=== PATIENT | male | born 1980 | race African-American/Black ===

== ENCOUNTER 2020-12-02 16:08 | Inpatient (IN) | payer SELFPAY ==
[2020-12-02 16:51] VITALS: BMI 55.5
[2020-12-02] MEDS ORDERED: Acetaminophen 325 MG TAB PO PRN (17:34)
[2020-12-02] MEDS ORDERED: HYDROcodone/Acetaminophen 5/325 mg Tablet PO PRN (17:34)
[2020-12-02] MEDS ORDERED: Ondansetron PF 4 MG/2 ML Vial IVP PRN (17:34)
[2020-12-02] MEDS ORDERED: HYDROcodone/Acetaminophen 10/325 mg Tablet PO PRN (17:34)
[2020-12-02] MEDS ORDERED: Senokot S 8.6-50 MG TAB PO PRN (17:34)
[2020-12-02] MEDS ORDERED: Melatonin 3 MG TAB PO PRN (17:43)
[2020-12-02] MEDS ORDERED: Labetalol HCl 100 MG/20 ML VIAL SLOW IVP PRN (17:52)
[2020-12-02] MEDS ORDERED: Clindamycin/D5W 600 MG in Premix Bag 1 BAG IVPB SCH (18:00)
[2020-12-02] MEDS ORDERED: Electrolyte Replacement Protocol 1 EACH FS SCH (18:15)
[2020-12-02 19:45] LABS: Anion Gap 16 mmol/L (10-20); BUN (Urea Nitrogen) 9 mg/dL (8.9-20.6); Calc. Creatinine Clearance 237 mL/min (70-130); Calcium 9.5 mg/dL (7.8-10.44); Carbon Dioxide 28 mmol/L (22-29); Chloride 101 mmol/L (98-107); Glucose 95 mg/dL (70-105); Potassium 3.7 mmol/L (3.5-5.1); Sodium 141 mmol/L (136-145)
[2020-12-02] MEDS: Nicotine 21 MG PATCH TD SCH (20:39)
[2020-12-02] MEDS: Clindamycin/D5W 600 MG in Premix Bag 1 BAG IVPB SCH (20:39)
[2020-12-02] MEDS: Nitroglycerin 2% Ointment 1 INCH/1 GM Packet TOP SCH (21:59)
[2020-12-03 02:27] LABS: INR-International Normal Ratio 1.3; Prothrombin Time 16.5 sec (12.0-14.7)
[2020-12-03 02:37] LABS: Anion Gap 13 mmol/L (10-20); BUN (Urea Nitrogen) 9 mg/dL (8.9-20.6); Calc. Creatinine Clearance 256 mL/min (70-130); Calcium 9.2 mg/dL (7.8-10.44); Carbon Dioxide 31 mmol/L (22-29); Chloride 99 mmol/L (98-107); Glucose 114 mg/dL (70-105); Potassium 3.5 mmol/L (3.5-5.1); Sodium 139 mmol/L (136-145)
[2020-12-03] MEDS ORDERED: Potassium Chloride 20 MEQ TAB PO SCH (04:30)
[2020-12-03] MEDS: Clindamycin/D5W 600 MG in Premix Bag 1 BAG IVPB SCH ×3 (05:17→21:12)
[2020-12-03] MEDS: Furosemide 40 MG/4 ML VIAL SLOW IVP SCH ×3 (05:17→21:13)
[2020-12-03 06:25] LABS: #Basophils 0.1 thou/uL (0.0-0.2); #Lymphocytes 2.2 thou/uL (1.20-3.40); #Monocytes 0.6 thou/uL (0.11-0.59); #Neutrophils 3.5 thou/uL (1.40-6.50); %Eosinophils 0.7 % (0.0-10.0); %Lymphocytes 34.5 % (21.0-51.0); %Neutrophils 54.8 % (42.0-75.0); Mean Corpuscular HGB CONC 30.2 g/dL (32.0-36.0); Mean Corpuscular Hemoglobin 26.9 pg (27.0-31.0); Mean Corpuscular Volume 89.1 fL (78.0-98.0); Mean Platelet Volume 6.6 fL (7.4-10.4); Platelet Count 392 thou/uL (130-400); RBC Distribution Width 17.9 % (11.5-14.5); Red Blood Cell (RBC) Count 4.46 mill/uL (4.70-6.10); White Blood Cell (WBC) Count 6.3 thou/uL (4.8-10.8)
[2020-12-03 06:33] LABS: Hemoglobin A1c 6.4 % (4.0-6.0)
[2020-12-03 06:50] LABS: ALT (SGPT) 10 U/L (8-55); AST (SGOT) 20 U/L (5-34); Albumin 3.6 g/dL (3.5-5.0); Alkaline Phosphatase 232 U/L (40-110); Anion Gap 13 mmol/L (10-20); BUN (Urea Nitrogen) 9 mg/dL (8.9-20.6); Bilirubin, Total 3.6 mg/dL (0.2-1.2); Calc. Creatinine Clearance 246 mL/min (70-130); Calcium 9.5 mg/dL (7.8-10.44); Carbon Dioxide 29 mmol/L (22-29); Cardiac Risk 3.4 (Less than 4.5); Chloride 101 mmol/L (98-107); Cholesterol 88 mg/dl (< 200 Desired); Globulin 3.7 g/dL (2.4-3.5); Glucose 110 mg/dL (70-105); HDL Cholesterol 26 mg/dL (>60 Neg Risk); LDL Cholesterol, Calculated 48 mg/dL; Magnesium 1.9 mg/dL (1.6-2.6); Phosphorus 4.5 mg/dL (2.3-4.7); Potassium 3.9 mmol/L (3.5-5.1); Protein, Total 7.3 g/dL (6.0-8.3); Sodium 139 mmol/L (136-145); Triglycerides 71 mg/dL (Less than 150)
[2020-12-03] MEDS ORDERED: Magnesium 2 GM/50 ML 2 GM in Premix Bag 1 BAG IVPB SCH (07:30)
[2020-12-03] MEDS: Famotidine 20 MG TAB PO SCH ×2 (08:55→21:12)
[2020-12-03] MEDS: Nitroglycerin 2% Ointment 1 INCH/1 GM Packet TOP SCH ×2 (08:56→21:14)
[2020-12-03] MEDS: Carvedilol 3.125 MG TAB PO SCH (16:21)
[2020-12-03] MEDS: Nicotine 21 MG PATCH TD SCH (16:21)
[2020-12-03 18:55] LABS: Amphetamine Not Detected (NotDetected); Barbiturates Screen Not Detected (NotDetected); Benzodiazepine Screen Not Detected (NotDetected); Cocaine Metabolite Screen Not Detected (NotDetected); Methadone Not Detected (NotDetected); Methamphetamine Not Detected (NotDetected); Opiate Screen Detected (NotDetected); Oxycodone Screen Not Detected (NotDetected); Phencyclidine (PCP) Not Detected (NotDetected); THC/Cannabinoid Screen Detected (NotDetected); Tricyclic Screen Not Detected (NotDetected)
[2020-12-04] MEDS: Furosemide 40 MG/4 ML VIAL SLOW IVP SCH ×3 (05:14→21:06)
[2020-12-04] MEDS: Clindamycin/D5W 600 MG in Premix Bag 1 BAG IVPB SCH ×3 (05:14→20:10)
[2020-12-04 05:17] LABS: Anion Gap 17 mmol/L (10-20); BUN (Urea Nitrogen) 10 mg/dL (8.9-20.6); Calc. Creatinine Clearance 246 mL/min (70-130); Calcium 9.1 mg/dL (7.8-10.44); Carbon Dioxide 26 mmol/L (22-29); Chloride 98 mmol/L (98-107); Glucose 110 mg/dL (70-105); Sodium 137 mmol/L (136-145)
[2020-12-04] MEDS: Famotidine 20 MG TAB PO SCH ×2 (09:17→20:09)
[2020-12-04] MEDS: Carvedilol 3.125 MG TAB PO SCH ×2 (09:17→16:44)
[2020-12-04] MEDS: Nitroglycerin 2% Ointment 1 INCH/1 GM Packet TOP SCH ×2 (09:17→20:57)
[2020-12-04] MEDS: Nicotine 21 MG PATCH TD SCH (16:45)
[2020-12-04] MEDS: Lisinopril 5 MG TAB PO SCH (20:09)
[2020-12-05] MEDS: Clindamycin/D5W 600 MG in Premix Bag 1 BAG IVPB SCH (05:43)
[2020-12-05] MEDS: Furosemide 40 MG/4 ML VIAL SLOW IVP SCH ×3 (05:43→20:50)
[2020-12-05 06:16] LABS: Anion Gap 15 mmol/L (10-20); BUN (Urea Nitrogen) 11 mg/dL (8.9-20.6); Calc. Creatinine Clearance 220 mL/min (70-130); Calcium 9.2 mg/dL (7.8-10.44); Carbon Dioxide 29 mmol/L (22-29); Chloride 97 mmol/L (98-107); Glucose 108 mg/dL (70-105); Potassium 3.7 mmol/L (3.5-5.1); Sodium 137 mmol/L (136-145)
[2020-12-05] MEDS ORDERED: Metolazone 5 MG TAB PO SCH (08:45)
[2020-12-05] MEDS: Famotidine 20 MG TAB PO SCH ×2 (09:17→20:50)
[2020-12-05] MEDS: Carvedilol 3.125 MG TAB PO SCH ×2 (09:17→16:32)
[2020-12-05] MEDS: Lisinopril 5 MG TAB PO SCH ×2 (09:17→20:58)
[2020-12-05] MEDS: Nitroglycerin 2% Ointment 1 INCH/1 GM Packet TOP SCH ×2 (09:18→20:50)
[2020-12-06 05:15] LABS: Anion Gap 15 mmol/L (10-20); BUN (Urea Nitrogen) 11 mg/dL (8.9-20.6); Calc. Creatinine Clearance 222 mL/min (70-130); Calcium 9.5 mg/dL (7.8-10.44); Carbon Dioxide 31 mmol/L (22-29); Chloride 95 mmol/L (98-107); Glucose 105 mg/dL (70-105); Potassium 3.6 mmol/L (3.5-5.1); Sodium 137 mmol/L (136-145)
[2020-12-06] MEDS: Furosemide 40 MG/4 ML VIAL SLOW IVP SCH ×3 (06:14→22:10)
[2020-12-06] MEDS ORDERED: Metolazone 5 MG TAB PO SCH (08:00)
[2020-12-06] MEDS ORDERED: Potassium Chloride 20 MEQ TAB PO SCH (08:00)
[2020-12-06] MEDS: Famotidine 20 MG TAB PO SCH ×2 (08:57→22:02)
[2020-12-06] MEDS: Lisinopril 5 MG TAB PO SCH ×2 (08:57→22:02)
[2020-12-06] MEDS: Carvedilol 3.125 MG TAB PO SCH ×2 (08:57→16:29)
[2020-12-06] MEDS: Nitroglycerin 2% Ointment 1 INCH/1 GM Packet TOP SCH ×2 (08:58→22:04)
[2020-12-06] MEDS ORDERED: Communication Order-Pharmacy FS SCH (17:45)
[2020-12-06] MEDS ORDERED: Aspirin 81 mg Enteric Coated Tablet PO SCH (18:15)
[2020-12-07 04:44] LABS: Anion Gap 16 mmol/L (10-20); BUN (Urea Nitrogen) 12 mg/dL (8.9-20.6); Calc. Creatinine Clearance 213 mL/min (70-130); Carbon Dioxide 32 mmol/L (22-29); Chloride 91 mmol/L (98-107); Glucose 102 mg/dL (70-105); Potassium 3.6 mmol/L (3.5-5.1); Sodium 135 mmol/L (136-145)
[2020-12-07] MEDS: Famotidine 20 MG TAB PO SCH ×2 (05:31→20:13)
[2020-12-07] MEDS: Aspirin 81 mg Enteric Coated Tablet PO SCH (05:32)
[2020-12-07] MEDS: Sodium Chloride 0.9% 1,000 ML IV SCH (05:32)
[2020-12-07] MEDS: Furosemide 40 MG/4 ML VIAL SLOW IVP SCH ×2 (06:40→16:11)
[2020-12-07] MEDS ORDERED: Heparin 10,000 UNITS/ 10 ML VIAL ONE (08:26)
[2020-12-07] MEDS ORDERED: Lidocaine 1% (PF) 30 ML VIAL ONE ×2 (08:27→09:25)
[2020-12-07] MEDS ORDERED: Midazolam HCl 2 mg/2 ml Vial ONE (09:16)
[2020-12-07] MEDS ORDERED: Fentanyl 100 MCG/2 ML VIAL ONE (09:16)
[2020-12-07] MEDS ORDERED: Iopamidol 370 76% 100 ML VIAL ONE (09:35)
[2020-12-07] MEDS ORDERED: Protamine Sulfate 50 MG/5 ML VIAL ONE (09:38)
[2020-12-07] MEDS: Nitroglycerin 2% Ointment 1 INCH/1 GM Packet TOP SCH ×2 (10:36→20:14)
[2020-12-07] MEDS: Lisinopril 5 MG TAB PO SCH ×2 (10:36→20:12)
[2020-12-07] MEDS: Carvedilol 3.125 MG TAB PO SCH ×2 (10:36→16:11)
[2020-12-07 17:01] LABS: Magnesium 1.8 mg/dL (1.6-2.6)
[2020-12-08] MEDS: Furosemide 40 MG/4 ML VIAL SLOW IVP SCH ×4 (00:21→23:04)
[2020-12-08] MEDS: Sodium Chloride 0.9% 1,000 ML IV SCH (03:04)
[2020-12-08 04:54] LABS: #Basophils 0.1 thou/uL (0.0-0.2); #Lymphocytes 2.1 thou/uL (1.20-3.40); #Monocytes 0.5 thou/uL (0.11-0.59); #Neutrophils 2.7 thou/uL (1.40-6.50); %Basophils 1.3 % (0.0-1.0); %Eosinophils 0.8 % (0.0-10.0); %Lymphocytes 39.5 % (21.0-51.0); %Monocytes 8.7 % (0.0-10.0); %Neutrophils 49.8 % (42.0-75.0); Hemoglobin 14.1 g/dL (14.0-18.0); Mean Corpuscular HGB CONC 32.6 g/dL (32.0-36.0); Mean Corpuscular Hemoglobin 29.1 pg (27.0-31.0); Mean Corpuscular Volume 89.1 fL (78.0-98.0); Platelet Count 370 thou/uL (130-400); RBC Distribution Width 17.7 % (11.5-14.5); Red Blood Cell (RBC) Count 4.84 mill/uL (4.70-6.10); White Blood Cell (WBC) Count 5.3 thou/uL (4.8-10.8)
[2020-12-08] MEDS: Carvedilol 3.125 MG TAB PO SCH ×2 (09:35→16:58)
[2020-12-08] MEDS: Aspirin 81 mg Enteric Coated Tablet PO SCH (09:35)
[2020-12-08] MEDS: Nitroglycerin 2% Ointment 1 INCH/1 GM Packet TOP SCH ×2 (09:35→20:33)
[2020-12-08] MEDS: Lisinopril 5 MG TAB PO SCH ×2 (09:35→20:33)
[2020-12-08] MEDS: Famotidine 20 MG TAB PO SCH ×2 (09:35→20:33)
[2020-12-08 10:03] LABS: Magnesium 1.8 mg/dL (1.6-2.6)
[2020-12-08 10:08] LABS: Anion Gap 17 mmol/L (10-20); BUN (Urea Nitrogen) 8 mg/dL (8.9-20.6); BUN (Urea Nitrogen) 9 mg/dL (8.9-20.6); Calc. Creatinine Clearance 195 mL/min (70-130); Calc. Creatinine Clearance 197 mL/min (70-130); Calcium 10.3 mg/dL (7.8-10.44); Calcium 10.4 mg/dL (7.8-10.44); Carbon Dioxide 30 mmol/L (22-29); Chloride 92 mmol/L (98-107); Glucose 100 mg/dL (70-105); Glucose 99 mg/dL (70-105); Potassium 3.7 mmol/L (3.5-5.1); Sodium 135 mmol/L (136-145)
[2020-12-08] MEDS ORDERED: Magnesium 2 GM/50 ML 2 GM in Premix Bag 1 BAG IVPB SCH ×2 (12:00→13:30)
[2020-12-09 05:21] LABS: Anion Gap 14 mmol/L (10-20); BUN (Urea Nitrogen) 14 mg/dL (8.9-20.6); Calc. Creatinine Clearance 208 mL/min (70-130); Calcium 9.9 mg/dL (7.8-10.44); Carbon Dioxide 33 mmol/L (22-29); Chloride 93 mmol/L (98-107); Glucose 109 mg/dL (70-105); Potassium 3.6 mmol/L (3.5-5.1); Sodium 136 mmol/L (136-145)
[2020-12-09] MEDS: Furosemide 40 MG/4 ML VIAL SLOW IVP SCH (09:26)
[2020-12-09] MEDS: Carvedilol 3.125 MG TAB PO SCH (09:26)
[2020-12-09] MEDS: Lisinopril 5 MG TAB PO SCH (09:26)
[2020-12-09] MEDS: Aspirin 81 mg Enteric Coated Tablet PO SCH (09:26)
[2020-12-09] MEDS: Famotidine 20 MG TAB PO SCH (09:27)
[2020-12-09] MEDS: Nitroglycerin 2% Ointment 1 INCH/1 GM Packet TOP SCH (09:27)
[2020-12-09 12:32] VITALS: BP 110/54; TEMP 97.7
== END 2020-12-09 15:11 | disposition home or self-care (01) | DRG 287 ==
LOC: 2NO 16:08
PROVIDERS: ADMIT Internal Medicine; ATTEND Internal Medicine
PROC: 4A023N7 Measurement of Cardiac Sampling and Pressure, Left Heart, Percutaneous Approach (ICD-10-PCS; principal; 2020-12-07)
PROC: B2111ZZ Fluoroscopy of Multiple Coronary Arteries using Low Osmolar Contrast (ICD-10-PCS; 2020-12-07)
PROC: B2151ZZ Fluoroscopy of Left Heart using Low Osmolar Contrast (ICD-10-PCS; 2020-12-07)
PROC: 4A033BC Measurement of Arterial Pressure, Coronary, Percutaneous Approach (ICD-10-PCS; 2020-12-07)
DX: I11.0 Hypertensive heart disease with heart failure (principal); I50.43 Acute on chronic combined systolic (congestive) and diastolic (congestive) heart failure; F17.210 Nicotine dependence, cigarettes, uncomplicated; R79.89 Other specified abnormal findings of blood chemistry; E66.01 Morbid (severe) obesity due to excess calories; S30.22XA Contusion of scrotum and testes, initial encounter; X58.XXXA Exposure to other specified factors, initial encounter; E78.00 Pure hypercholesterolemia, unspecified; I44.1 Atrioventricular block, second degree; I42.8 Other cardiomyopathies; E78.5 Hyperlipidemia, unspecified; Z68.42 Body mass index [BMI] 45.0-49.9, adult; Z83.49 Family history of other endocrine, nutritional and metabolic diseases; Z83.1 Family history of other infectious and parasitic diseases; Z91.14 Patient's other noncompliance with medication regimen; Z20.822 Contact with and (suspected) exposure to COVID-19
CPT/HCPCS: 36415; 71046; 76870; 76942; 80048; 80053; 80061; 80306; 83036; 83735; 83880; 84100; 84443; 85025; 85347; 85610; 93005; 93010; 93306; 93458; 99152; J1644; J1940; J2001; J2250; J2720; J3010; J3475; J3490; J7050; Q9967